=== PATIENT | female | born 1945 | race Hispanic/Latino ===

== ENCOUNTER → 2018-11-27 | Outpatient (CLI) | payer OTHER ==
[~2018-11-27] MED LIST: GADODIAMIDE 5 MMOL/10 ML VIAL 5 MMOL/10 ML ML IV ONE
== END | disposition home or self-care (01) ==
LOC: RAH 15:35
PROVIDERS: ATTEND Family Medicine
DX: R90.82 White matter disease, unspecified (principal)
CPT/HCPCS: 70553; A9579

== ENCOUNTER 2019-01-28 12:49 | Observation (INO) | payer OTHER ==
[~2019-01-28] VITALS: Ht 152.4 cm; Wt 67.9 kg
[2019-01-28 13:18] LABS: BASOPHILS % (AUTO) 0.9 % (0.0-5.0); EOSINOPHILS % (AUTO) 2.4 % (0.0-8.0); HEMATOCRIT 37.9 % (36-48); LYMPHOCYTES % (AUTO) 36.5 % (21.0-51.0); MEAN CORPUSCULAR HEMOGLOBIN 31.1 pg (27.0-33.0); MEAN CORPUSCULAR HGB CONC 34.5 g/dL (32.0-36.0); MEAN CORPUSCULAR VOLUME 90.3 fL (79-99); MONOCYTES % (AUTO) 5.9 % (3.0-13.0); NEUTROPHILS % (AUTO) 54.3 % (40.0-77.0); PLATELET COUNT (AUTO) 175 K/uL (130-400); RED CELL DISTRIBUTION WIDTH 13.5 % (11.0-15.5); WHITE BLOOD COUNT (AUTO) 6.3 K/uL (4.8-10.8)
[2019-01-28] MEDS ORDERED: METHYLPREDNISOLONE SOD SUCC 40MG/ML 1ML ONE (13:24)
[2019-01-28] MEDS ORDERED: METOCLOPRAMIDE 10 MG/2 ML VIAL ONE (13:24)
[2019-01-28] MEDS ORDERED: LACTATED RINGERS 1000ML 1,000 ML IV ONE (13:25)
[2019-01-28] MEDS ORDERED: DIPHENHYDRAMINE HCL 25 MG CAPSULE ONE (13:25)
[2019-01-28 13:32] LABS: CREATININE 0.7 mg/dL (0.5-1.5); POTASSIUM 3.9 mmol/L (3.5-5.1)
[2019-01-28 13:34] LABS: INR 0.99 (0.85-1.15); PARTIAL THROMBOPLASTIN TIME 27.5 SEC (26.3-35.5); PROTHROMBIN TIME 10.4 SEC (9.6-11.6)
[2019-01-28 13:36] LABS: ALBUMIN 3.7 g/dL (3.5-5.0); BILIRUBIN,TOTAL 0.3 mg/dL (0.2-1.0); TOTAL PROTEIN, SERUM 7.3 g/dL (6.0-8.3)
[2019-01-28] MEDS ORDERED: INSULIN HUMULIN R 100 UNIT/ML 3ML ONE (13:40)
[2019-01-28] MEDS: ENOXAPARIN SODIUM 30 MG/0.3 ML SQ SCH (15:53)
[2019-01-28] MEDS ORDERED: ACETAMINOPHEN 325 MG TAB PO PRN (16:00)
[2019-01-28] MEDS ORDERED: ONDANSETRON HCL 4 MG/2 ML VIAL IVP PRN (16:00)
[2019-01-28] MEDS ORDERED: ENOXAPARIN SODIUM 30 MG/0.3 ML SQ ONE (16:40)
[2019-01-28] MEDS ORDERED: ASPIRIN 81MG TAB.CHEW ONE (18:49)
[2019-01-28 19:20] VITALS: BP 144/75
[2019-01-28 23:20] VITALS: BP 119/74
[2019-01-29 03:30] VITALS: BP 127/76
[2019-01-29 04:02] LABS: HEMATOCRIT 35.8 % (36-48); MEAN CORPUSCULAR HGB CONC 35.3 g/dL (32.0-36.0); MEAN CORPUSCULAR VOLUME 90.5 fL (79-99); PLATELET COUNT (AUTO) 165 K/uL (130-400); RED BLOOD CELL COUNT(AUTO) 3.95 MIL/uL (4.00-5.50); RED CELL DISTRIBUTION WIDTH 13.2 % (11.0-15.5)
[2019-01-29 04:16] LABS: ALBUMIN 3.4 g/dL (3.5-5.0); BILIRUBIN,TOTAL 0.2 mg/dL (0.2-1.0); CREATININE 0.8 mg/dL (0.5-1.5); MAGNESIUM 1.6 mg/dL (1.80-2.40); POTASSIUM 4.2 mmol/L (3.5-5.1); TOTAL PROTEIN, SERUM 6.8 g/dL (6.0-8.3)
[2019-01-29 08:00] VITALS: BP 135/69
[2019-01-29] MEDS: ASPIRIN 81MG TAB.CHEW PO SCH (08:27)
[2019-01-29] MEDS: ENOXAPARIN SODIUM 30 MG/0.3 ML SQ SCH (08:28)
[2019-01-29] MEDS ORDERED: PNEUMOCOCCAL VACCINE POLYVALENT 0.5 ML/VIAL [PPV] IM SCH (09:00)
[2019-01-29 11:00] VITALS: BP_SYST 135; BP_SYST 146; BP_DIAS 69; BP_DIAS 89
[2019-01-29] MEDS ORDERED: MAGNESIUM 2GM PREMIX 50ML 50 ML IV SCH (12:00)
[2019-01-29] MEDS: INSULIN HUMULIN R 100 UNIT/ML 3ML SQ SCH ×3 (12:13→21:47)
[2019-01-29] MEDS ORDERED: SITA100T12 PO (13:13)
[2019-01-29] MEDS ORDERED: METF-444 PO (13:13)
[2019-01-29] MEDS ORDERED: SIMV20TA6 PO (13:13)
[2019-01-29] MEDS ORDERED: LISI10TA7 PO (13:13)
--- NOTE | 2019-01-29 15:10 | NUR ---
DCP CM met with pt discussed dc plans. Pt is independent lives at home alone, daughter lives next door. Denies any equipments/services. Pt feels safe to go back home, still drives, daughter able to assist with transportation and needs as necessary. DC plan to home once stable. CM to cont to follow up. Addendum: 01/29/19 at 1512 by LEELEE MENA LVN CM Amended: Links added.
[2019-01-29 16:00] VITALS: BP 125/70
[2019-01-29 19:43] VITALS: BP 140/72
[2019-01-29] MEDS ORDERED: SIMVASTATIN 20 MG TABLET PO SCH (21:00)
[2019-01-30] VITALS: BP 149/78
[2019-01-30 04:00] VITALS: BP 133/70
[2019-01-30] MEDS: INSULIN HUMULIN R 100 UNIT/ML 3ML SQ SCH (06:13)
[2019-01-30 07:25] VITALS: BP 149/82
[2019-01-30] MEDS: ASPIRIN 81MG TAB.CHEW PO SCH (07:58)
[2019-01-30] MEDS: ENOXAPARIN SODIUM 30 MG/0.3 ML SQ SCH (07:59)
[2019-01-30] MEDS ORDERED: LISINOPRIL 10 MG TABLET PO SCH (09:00)
--- NOTE | 2019-01-30 10:00 | NUR ---
MD REGGIE SALAMANCA VISITED WITH PATIENT. POC DISCUSSED. NO NEW ORDERS AT THIS TIME. PATIENT MAY BE DISCHARGED HOME TODAY IF OKAYT WITH . PATIENT AND FAMILY AWARE. WILL CONTINUE TO BE OBSERVED. Addendum: 01/30/19 at 1437 by ALINE MARION RN RN Amended: Links added.
[2019-01-30 11:00] VITALS: BP 124/74
--- NOTE | 2019-01-30 14:00 | NUR ---
MD REGGIE BERMEO VISITED WITH PATEINT. NEW ORDERS RECEIVED TO DISCHARGE HOME. PATIENT AWARE. ORDERS RECEIVED AND CARRIED OUT. Addendum: 01/30/19 at 1438 by ALINE MARION RN RN Amended: Links added.
--- NOTE | 2019-01-30 14:39 | NUR ---
DISCHARGE PATIENT GIVEN DISCHARGE INSTRUCTIONS AND EDUCATION, INCLUDING SIDE EFFECTS ON BABY ASPIRIN AND FOLLOW UP APPOINTMENTS. PATIENT VERBALIZED UNDERSTANDING OF ALL EDUCATION GIVEN VIA TEACH BACK. NO QUESTIONS OR CONCERNS VOICED AT THIS TIME. IV DISCONTINUED, CATHETER INTACT. NO SIGNS OF DISTRESS NOTED UPON DISCHARGE. PATIENT LEFT VIA WHEELCHAIR WITH DAUGHTER AT SIDE TO PRIVATE CAR. ALL BELONGINGS TAKEN WITH. Addendum: 01/30/19 at 1445 by ALINE MARION RN RN Amended: Links added.
== END 2019-01-30 15:01 | disposition home or self-care (01) ==
LOC: EDH 12:49 → EDHIP 15:16 → 4BH 19:15
PROVIDERS: ADMIT Internal Medicine Infectious Disease; ATTEND Internal Medicine Infectious Disease
DX: R42 Dizziness and giddiness (principal); M47.812 Spondylosis without myelopathy or radiculopathy, cervical region; E11.9 Type 2 diabetes mellitus without complications; E78.5 Hyperlipidemia, unspecified; H53.2 Diplopia; I10 Essential (primary) hypertension; Z83.3 Family history of diabetes mellitus; Z90.710 Acquired absence of both cervix and uterus; Z23 Encounter for immunization; Z79.01 Long term (current) use of anticoagulants
CPT/HCPCS: 36415 ×2; 70450; 70544; 70553; 72141; 80053 ×2; 82550; 82948 ×8; 83735; 84484; 85025; 85027; 85610; 85651; 85730; 86140; 87804 ×2; 90732; 93005; 96365; 96366; 96372 ×2; 99284; G0009; G0378 ×48; J1650 ×3; J1815 ×3; J2765; J2920; J3475; J7120; Q0163

== ENCOUNTER 2020-02-08 11:08 | Emergency (ER) | payer OTHER ==
[~2020-02-08 11:08] MED LIST changes: -GADODIAMIDE 5 MMOL/10 ML VIAL 5 MMOL/10 ML ML IV ONE; +LISI10TA7 PO; +METF-444 PO; +SIMV-43 PO; +SITA100T12 PO
[2020-02-08] MEDS ORDERED: ASPIRIN 325 MG TABLET ONE (11:20)
[2020-02-08 11:23] LABS: BASOPHILS % (AUTO) 0.7 % (0.0-5.0); EOSINOPHILS % (AUTO) 3.6 % (0.0-8.0); HEMATOCRIT 39.1 % (36-48); LYMPHOCYTES % (AUTO) 35.3 % (21.0-51.0); MEAN CORPUSCULAR HEMOGLOBIN 30.7 pg (27.0-33.0); MEAN CORPUSCULAR HGB CONC 34.8 g/dL (32.0-36.0); MEAN CORPUSCULAR VOLUME 88.3 fL (79-99); MONOCYTES % (AUTO) 5.9 % (3.0-13.0); NEUTROPHILS % (AUTO) 54.4 % (40.0-77.0); PLATELET COUNT (AUTO) 172 K/uL (130-400); RED BLOOD CELL COUNT(AUTO) 4.43 MIL/uL (4.00-5.50); RED CELL DISTRIBUTION WIDTH 12.6 % (11.0-15.5); WHITE BLOOD COUNT (AUTO) 6.9 K/uL (4.8-10.8)
[2020-02-08 11:32] LABS: CREATININE 0.8 mg/dL (0.5-1.5); INR 0.92 (0.85-1.15); PARTIAL THROMBOPLASTIN TIME 26.4 SEC (26.3-35.5); POTASSIUM 4.1 mmol/L (3.5-5.1)
[2020-02-08 11:36] LABS: ALBUMIN 3.7 g/dL (3.5-5.0); BILIRUBIN,TOTAL 0.3 mg/dL (0.2-1.0); TOTAL PROTEIN, SERUM 7.5 g/dL (6.0-8.3)
[2020-02-08] MEDS ORDERED: LIDOCAINE HCL 2% VISCOUS 15 ML UDCUP ONE (12:22)
[2020-02-08] MEDS ORDERED: MAG HYDROX/AL HYDROX/SIMETH ES 30 ML SUSP UDCUP ONE (12:23)
[2020-02-08] MEDS ORDERED: FAMOTIDINE/PF 20 MG/2 ML VIAL IV ONE (13:27)
== END 2020-02-08 13:39 | disposition home or self-care (01) ==
LOC: EDH 11:08
DX: K21.9 Gastro-esophageal reflux disease without esophagitis (principal); R07.89 Other chest pain; E11.9 Type 2 diabetes mellitus without complications; E78.5 Hyperlipidemia, unspecified; I10 Essential (primary) hypertension; Z87.891 Personal history of nicotine dependence; Z88.1 Allergy status to other antibiotic agents; Z91.041 Radiographic dye allergy status
CPT/HCPCS: 36415; 71045; 80053; 82550; 84484; 85025; 85610; 85730; 93005; 96374; 99285; J3490

== ENCOUNTER 2021-01-31 18:23 | Emergency (ER) | payer OTHER ==
[~2021-01-31 18:23] MED LIST changes: +LISI10TA24 PO; -LISI10TA7 PO
[2021-01-31 19:13] LABS: APPEARANCE,URINE Cloudy (CLEAR); BILIRUBIN,URINE Small (NEGATIVE); COLOR,URINE Dark Yellow (YELLOW); GLUCOSE, URINE (UA) >=1000 mg/dL (NEGATIVE); KETONES,URINE Trace mg/dL (NEGATIVE); LEUKOCYTE ESTERASE ,URINE Moderate (NEGATIVE); NITRATE,URINE Negative (NEGATIVE); OCCULT BLOOD,URINE Negative (NEGATIVE); PH,URINE 5.5 (5.0-8.0); PROTEIN,URINE Negative (NEGATIVE)
[2021-01-31] MEDS ORDERED: MAG HYDROX/AL HYDROX/SIMETH ES 30 ML SUSP UDCUP ONE (19:23)
[2021-01-31] MEDS ORDERED: LIDOCAINE HCL 2% VISCOUS 15 ML UDCUP ONE (19:23)
[2021-01-31 19:24] LABS: BACTERIA,URINE Few /HPF (None Seen)
[2021-01-31] MEDS ORDERED: ACETAMINOPHEN EXTRA STRENGTH 500 MG TABLET ONE (19:24)
[2021-01-31] MEDS ORDERED: FAMOTIDINE 20MG TAB 20 MG TAB ONE (19:24)
[2021-01-31] MEDS ORDERED: SODIUM CHLORIDE 0.9% 1000ML 1,000 ML IV ONE (19:24)
[2021-01-31 19:25] LABS: MUCUS,URINE Rare LPF (None Seen); SQUAMOUS EPITHELIAL CELL,UR Few /HPF (0-2)
[2021-01-31 19:33] LABS: BASOPHILS % (AUTO) 0.5 % (0.0-5.0); EOSINOPHILS % (AUTO) 1.2 % (0.0-8.0); HEMATOCRIT 38.4 % (36-48); LYMPHOCYTES % (AUTO) 23.3 % (21.0-51.0); MEAN CORPUSCULAR HEMOGLOBIN 30.2 pg (27.0-33.0); MEAN CORPUSCULAR HGB CONC 33.9 g/dL (32.0-36.0); MEAN CORPUSCULAR VOLUME 89.1 fL (79-99); MONOCYTES % (AUTO) 6.6 % (3.0-13.0); NEUTROPHILS % (AUTO) 68.2 % (40.0-77.0); PLATELET COUNT (AUTO) 159 K/uL (130-400); RED BLOOD CELL COUNT(AUTO) 4.31 MIL/uL (4.00-5.50); RED CELL DISTRIBUTION WIDTH 13.2 % (11.0-15.5); WHITE BLOOD COUNT (AUTO) 6.6 K/uL (4.8-10.8)
[2021-01-31] MEDS ORDERED: INSULIN HUMULIN R 100 UNIT/ML 3ML ONE (19:48)
== END 2021-01-31 21:15 | disposition home or self-care (01) ==
LOC: EDH 18:23
DX: K29.00 Acute gastritis without bleeding (principal); E11.65 Type 2 diabetes mellitus with hyperglycemia; R03.0 Elevated blood-pressure reading, without diagnosis of hypertension; E78.5 Hyperlipidemia, unspecified; Z91.041 Radiographic dye allergy status; Z88.1 Allergy status to other antibiotic agents
CPT/HCPCS: 36415; 71045; 81001; 82948 ×2; 83605; 83690; 84484; 85025; 87040; 87088; 93005; 96361; 96374; 99285; J1815; J7030

== ENCOUNTER 2022-06-29 11:25 | Emergency (ER) | payer MEDICAID, MEDICARE, OTHER ==
[~2022-06-29] VITALS: Ht 147.3 cm; Wt 68.0 kg
[2022-06-29] MEDS ORDERED: 0.9%NACL 1000ML 1,000 ML IV ONE (12:00)
[2022-06-29 12:23] LABS: BASOPHILS % (AUTO) 0.6 % (0.0-5.0); EOSINOPHILS % (AUTO) 2.6 % (0.0-8.0); HEMATOCRIT 37.8 % (36-48); LYMPHOCYTES % (AUTO) 37.3 % (21.0-51.0); MEAN CORPUSCULAR HEMOGLOBIN 31.2 pg (27.0-33.0); MEAN CORPUSCULAR HGB CONC 35.4 g/dL (32.0-36.0); MEAN CORPUSCULAR VOLUME 87.9 fL (79-99); MONOCYTES % (AUTO) 6.3 % (3.0-13.0); NEUTROPHILS % (AUTO) 52.9 % (40.0-77.0); PLATELET COUNT (AUTO) 183 K/uL (130-400); WHITE BLOOD COUNT (AUTO) 6.5 K/uL (4.8-10.8)
[2022-06-29 12:26] LABS: APPEARANCE,URINE CLEAR (CLEAR); BILIRUBIN,URINE NEGATIVE (NEGATIVE); COLOR,URINE LIGHT-YELLOW (YELLOW); GLUCOSE, URINE (UA) NEGATIVE (NEGATIVE); KETONES,URINE NEGATIVE (NEGATIVE); LEUKOCYTE ESTERASE ,URINE 25 Leu/uL (NEGATIVE); NITRATE,URINE NEGATIVE (NEGATIVE); OCCULT BLOOD,URINE NEGATIVE (NEGATIVE); PROTEIN,URINE NEGATIVE (NEGATIVE); UROBILINOGEN,URINE 0.2 mg/dL (0.2-1.0)
[2022-06-29 12:27] LABS: SQUAMOUS EPITHELIAL CELL,UR RARE /HPF (0-2)
[2022-06-29 12:34] LABS: ALBUMIN 3.9 g/dL (3.5-5.0); CREATININE 0.8 mg/dL (0.5-1.5); POTASSIUM 4.5 mmol/L (3.5-5.1); TOTAL PROTEIN, SERUM 7.4 g/dL (6.0-8.3)
[2022-06-29] MEDS ORDERED: ACETAMINOPHEN 325 MG TAB ONE (12:51)
[2022-06-29 12:57] VITALS: BP 132/70
[2022-06-29] MEDS ORDERED: ACETAMINOPHEN 325 MG TAB PO ONE (13:00)
[2022-06-29] MEDS ORDERED: CEPH500B PO (13:15)
[2022-06-29] MEDS ORDERED: ACET-66 PO (13:15)
== END 2022-06-29 13:27 | disposition home or self-care (01) ==
LOC: EDH 11:25
DX: N39.0 Urinary tract infection, site not specified (principal); R51.9 Headache, unspecified; R42 Dizziness and giddiness; E11.9 Type 2 diabetes mellitus without complications; E78.00 Pure hypercholesterolemia, unspecified; I10 Essential (primary) hypertension; Z98.890 Other specified postprocedural states; Z88.1 Allergy status to other antibiotic agents; Z88.8 Allergy status to other drugs, medicaments and biological substances; Z79.899 Other long term (current) drug therapy; Z79.84 Long term (current) use of oral hypoglycemic drugs; W01.0XXA Fall on same level from slipping, tripping and stumbling without subsequent striking against object, initial encounter; Y93.89 Activity, other specified; Y92.89 Other specified places as the place of occurrence of the external cause; Y99.8 Other external cause status
CPT/HCPCS: 99285; 70450; 82550; 83874; 84484; 80053; 85025; 81001; 36415; 72125; 93005; J7030

== ENCOUNTER 2023-02-19 12:02 | Inpatient (IN) | payer MEDICARE, OTHER ==
[~2023-02-19] VITALS: Ht 152.4 cm; Wt 69.3 kg
[~2023-02-19 12:02] MED LIST changes: +ACET-66 PO; +CEPH500B PO
[2023-02-19 12:47] LABS: BASOPHILS % (AUTO) 0.5 % (0.0-5.0); EOSINOPHILS % (AUTO) 2.3 % (0.0-8.0); HEMATOCRIT 37.4 % (36-48); LYMPHOCYTES % (AUTO) 28.7 % (21.0-51.0); MEAN CORPUSCULAR HEMOGLOBIN 29.6 pg (27.0-33.0); MEAN CORPUSCULAR HGB CONC 32.9 g/dL (32.0-36.0); MEAN CORPUSCULAR VOLUME 89.9 fL (79-99); MONOCYTES % (AUTO) 6.4 % (3.0-13.0); NEUTROPHILS % (AUTO) 61.9 % (40.0-77.0); PLATELET COUNT (AUTO) 167 K/uL (130-400); RED BLOOD CELL COUNT(AUTO) 4.16 MIL/uL (4.00-5.50); WHITE BLOOD COUNT (AUTO) 6.5 K/uL (4.8-10.8)
[2023-02-19 12:49] LABS: APPEARANCE,URINE CLEAR (CLEAR); BILIRUBIN,URINE NEGATIVE (NEGATIVE); GLUCOSE, URINE (UA) 500 mg/dL (NEGATIVE); KETONES,URINE NEGATIVE (NEGATIVE); LEUKOCYTE ESTERASE ,URINE NEGATIVE Leu/uL (NEGATIVE); NITRATE,URINE NEGATIVE (NEGATIVE); OCCULT BLOOD,URINE NEGATIVE (NEGATIVE); PROTEIN,URINE NEGATIVE (NEGATIVE); UROBILINOGEN,URINE 0.2 mg/dL (0.2-1.0)
[2023-02-19 12:52] LABS: COLOR,URINE LIGHT-YELLOW (YELLOW)
[2023-02-19] MEDS ORDERED: IOHEXOL 350 MG/ML 100ML INFUS..BTL IV ONE (12:52)
[2023-02-19 12:53] LABS: BACTERIA,URINE RARE /HPF (None Seen); RBC,URINE 0-1 /HPF (0-1); SQUAMOUS EPITHELIAL CELL,UR RARE /HPF (0-2); WBC,URINE 0-1 /HPF (0-1)
[2023-02-19 12:58] LABS: CREATININE 0.6 mg/dL (0.5-1.5); POTASSIUM 4.1 mmol/L (3.5-5.1)
[2023-02-19] MEDS ORDERED: ASPIRIN 325MG TAB PO ONE (13:00)
[2023-02-19 13:02] LABS: ALBUMIN 2.5 g/dL (3.5-5.0); TOTAL PROTEIN, SERUM 7.2 g/dL (6.0-8.3)
[2023-02-19 13:10] LABS: B-TYPE NATRIURETIC PEPTIDE 50 pg/mL (0-100)
[2023-02-19] MEDS ORDERED: INSULIN HUMULIN R 100 UNIT/ML 3ML IV ONE (14:30)
[2023-02-19] MEDS ORDERED: 0.9%NACL 1000ML 1,000 ML IV ONE (14:30)
[2023-02-19] MEDS ORDERED: HYDRALAZINE 20MG/ML VIAL IV PRN (17:00)
[2023-02-19 17:44] LABS: THYROID STIMULATING HORMONE 1.16 uIU/mL (0.36-3.74)
[2023-02-19 17:49] LABS: HEMOGLOBIN A1C 10.7 % (4.0-6.0)
[2023-02-19 17:54] LABS: CRP QUANTITATIVE < 2.00 mg/L (0.00-9.0)
[2023-02-19 18:26] LABS: INR 0.98 (0.85-1.15); PROTHROMBIN TIME 10.7 SEC (9.6-11.6)
[2023-02-19 18:28] LABS: PARTIAL THROMBOPLASTIN TIME 27.3 SEC (26.3-35.5)
[2023-02-19] MEDS: INSULIN HUMULIN R 100 UNIT/ML 3ML SQ SCH (21:00)
[2023-02-19] MEDS: ATORVASTATIN 40 MG TABLET PO SCH (22:21)
[2023-02-19 22:30] VITALS: BP 158/80
[2023-02-19] MEDS ORDERED: SACU1TAB PO (23:48)
[2023-02-19] MEDS ORDERED: SEMA14TA2 PO (23:48)
[2023-02-19] MEDS ORDERED: ROSU40TA21 PO (23:48)
[2023-02-20] VITALS (8 sets, daily range): BP systolic 118–156; BP diastolic 69–96
[2023-02-20 00:35] LABS: ABG OXYGEN SATURATION 91.5 % (95.0-99.0); BASE EXCESS,VENOUS BLOOD GAS 4.1 (-2.0-3.0); HCO3,VENOUS BLOOD GAS 29.1 (21.0-28.0); PCO2,VENOUS BLOOD GAS 45 (32-45); PH,VENOUS BLOOD GAS 7.427 (7.350-7.450)
[2023-02-20 05:48] LABS: BASOPHILS % (AUTO) 0.7 % (0.0-5.0); EOSINOPHILS % (AUTO) 2.8 % (0.0-8.0); HEMATOCRIT 35.7 % (36-48); LYMPHOCYTES % (AUTO) 29.7 % (21.0-51.0); MEAN CORPUSCULAR HGB CONC 33.3 g/dL (32.0-36.0); MEAN CORPUSCULAR VOLUME 89.9 fL (79-99); MONOCYTES % (AUTO) 7.3 % (3.0-13.0); NEUTROPHILS % (AUTO) 59.2 % (40.0-77.0); PLATELET COUNT (AUTO) 159 K/uL (130-400); RED BLOOD CELL COUNT(AUTO) 3.97 MIL/uL (4.00-5.50); WHITE BLOOD COUNT (AUTO) 6.9 K/uL (4.8-10.8)
[2023-02-20 06:09] LABS: CREATININE 0.6 mg/dL (0.5-1.5); MAGNESIUM 1.8 mg/dL (1.80-2.40); POTASSIUM 3.7 mmol/L (3.5-5.1)
[2023-02-20] MEDS: INSULIN HUMULIN R 100 UNIT/ML 3ML SQ SCH ×4 (06:20→20:42)
[2023-02-20] MEDS ORDERED: ACETAMINOPHEN 500 MG TABLET PO PRN (07:30)
[2023-02-20] MEDS: Vitamin B Complex/Vit C/Folic Acid PO SCH (07:32)
[2023-02-20] MEDS: PANTOPRAZOLE 40 MG TAB DR PO SCH (07:32)
[2023-02-20] MEDS: ASPIRIN 81MG CHEW TAB PO SCH (07:33)
[2023-02-20] MEDS: ATORVASTATIN 40 MG TABLET PO SCH (20:39)
[2023-02-21 00:28] VITALS: BP 149/81
[2023-02-21 03:42] VITALS: BP 136/68
[2023-02-21] MEDS: INSULIN HUMULIN R 100 UNIT/ML 3ML SQ SCH (06:47)
[2023-02-21 07:43] VITALS: BP 124/67
[2023-02-21] MEDS: PANTOPRAZOLE 40 MG TAB DR PO SCH (08:01)
[2023-02-21] MEDS: ASPIRIN 81MG CHEW TAB PO SCH (08:02)
[2023-02-21] MEDS: Vitamin B Complex/Vit C/Folic Acid PO SCH (08:02)
[2023-02-21] MEDS ORDERED: CLOPIDOGREL 75MG TAB PO SCH (09:00)
[2023-02-21] MEDS ORDERED: ATOR40TA69 PO (10:19)
[2023-02-21] MEDS ORDERED: PANT40TA PO (10:19)
[2023-02-21] MEDS ORDERED: ASPI-1005 PO (10:19)
[2023-02-21] MEDS ORDERED: CLOP-31 PO (10:19)
== END 2023-02-21 11:47 | disposition home or self-care (01) | DRG 69 ==
LOC: EDH 12:02 → EDHIP 16:43 → 4AH 18:54 → 2DH 22:08
PROVIDERS: ADMIT Internal Medicine; ATTEND Internal Medicine
DX: G45.9 Transient cerebral ischemic attack, unspecified (principal); M50.30 Other cervical disc degeneration, unspecified cervical region; E11.65 Type 2 diabetes mellitus with hyperglycemia; E78.00 Pure hypercholesterolemia, unspecified; R29.700 NIHSS score 0; I10 Essential (primary) hypertension; Z20.822 Contact with and (suspected) exposure to COVID-19; Z95.5 Presence of coronary angioplasty implant and graft; Z90.49 Acquired absence of other specified parts of digestive tract; Z90.711 Acquired absence of uterus with remaining cervical stump
CPT/HCPCS: 36415; 36430; 36600; 70450; 70496; 70498; 70551; 71045; 80048; 80053; 81001; 82435; 82550; 82803; 82947; 82948; 83036; 83605; 83721; 83735; 83874; 83880; 84132; 84145; 84295; 84443; 84484; 85025; 85610; 85651; 85730; 86140; 87635; 87804; 92522; 92610; 93005; 93306; 93356; 93880; 97039; G0378; J1815; J7030; Q9967

== ENCOUNTER 2025-06-30 09:51 | Emergency (ER) | payer OTHER ==
[~2025-06-30] VITALS: Ht 157.5 cm; Wt 59.0 kg
[~2025-06-30 09:51] MED LIST changes: -ACET-66 PO; +ASPI-1005 PO; +ATOR40TA69 PO; +BUDE10.2 IH; +CALC-1125 PO; -CEPH500B PO; +CLOP-31 PO; +ERGO500093 PO; +FENO54TA6 PO; +ICOS1CAP2 PO; -LISI10TA24 PO; -SIMV-43 PO; -SITA100T12 PO
--- NOTE | 2025-06-30 10:29 | ERN ---
ED Note History of Present Illness Stated Complaint: NECK, DIZZY Chief Complaint: Dizzy/Light Headed Time Seen by MD: 10:12 Dictation: PATIENT IS A 80-YEAR-OLD FEMALE THAT CAME TO THE EMERGENCY ROOM VIA EMS WITH COMPLAINTS OF BEING LIGHTHEADED AND DIZZY FOR THE LAST WEEK WITH GENERALIZED BODY WEAKNESS. SHE ALSO COMPLAINTS OF A DIFFUSE BILATERAL AND POSTERIOR NECK PAIN FOR ONE WEEK. SHE HAS NO TRAUMA NO FEVER NO CHILLS. SHE STATES SHE LIVES ALONE AND HAS BEEN WEAK FOR THE LAST SEVERAL DAYS. HAS NO SPECIFIC COMPLAINTS NIH IS FOUR SPEECH IS CLEAR GAIT IS STEADY. Allergies: Coded Allergies: ciprofloxacin (Unverified Allergy, Unknown, 01/28/19) iodine (Verified Allergy, Unknown, 01/28/19) Home Meds Active Scripts Amoxicillin/Potassium Clav (Amox Tr-K Clv 875-125 mg Tab) 875 Mg-125 Mg Tablet, 1 EACH PO BID for 5 Days, #10 TAB 0 Refills Prov:REN OROZCO [facility] SPECIALIST 06/30/25 Clopidogrel Bisulfate (Plavix) 75 Mg Tablet, 75 MG PO DAILY, #30 TAB 0 Refills Prov:GERALDINE BLANCA MD 02/21/23 Atorvastatin Calcium (LIPITOR) 40 Mg Tablet, 40 MG PO HS, #30 TAB 0 Refills Prov:GERALDINE BLANCA MD 02/21/23 Aspirin (ASPIRIN 81MG CHEW TAB) 81 Mg Tab.chew, 81 MG PO DAILY, #30 TAB.CHEW 0 Refills Prov:GERALDINE BLANCA MD 02/21/23 Reported Medications Ergocalciferol (Vitamin D2) (Vitamin D2) 1,250 Mcg (26238 Unit) Capsule, 1250 MCG PO DAILY, CAP 11/07/23 Fenofibrate (Fenofibrate) 54 Mg Tablet, 54 MG PO DAILY, TAB 11/07/23 Calcium Carbonate (Calcium) 600 Mg Calcium (1500 Mg) Tablet, 600 MG PO BID, TAB 11/07/23 Icosapent Ethyl (Icosapent Ethyl) 1 Gram Capsule, 2 GM PO BID, CAP 11/07/23 Budesonide/Formoterol Fumarate (Symbicort 160-4.5 Mcg Inhaler) 160 Mcg-4.5 Mcg/Actuation Hfa.aer.ad, 10.2 GM IH BID 11/07/23 Metformin HCl (Metformin HCl) 500 Mg Tablet, 500 MG PO BIDAC, TAB 01/29/19 Past Medical History Past Medical History: COPD, Diabetes-Type II, Hypertension Surgical History: None Surgical History Other: CARDIAC STENTS, ABD SX Social History: Negative History: Not Applicable RN Note Reviewed/Agreed w/PFSH: Yes Review of System Dictation CONSTITUTIONAL: NEGATIVE EXCEPT FOR HPI GB W/LIGHTHEADED HEAD/FACE: NEGATIVE EXCEPT FOR HPI EENT: NEGATIVE EXCEPT FOR HPI RESPIRATORY: NEGATIVE EXCEPT FOR HPI GASTROINTESTINAL/ABDOMINAL: NEGATIVE EXCEPT FOR HPI GENITOURINARY: NEGATIVE EXCEPT FOR HPI MUSCULOSKELETAL: NEGATIVE EXCEPT FOR HPI INTEGUMENTARY: NEGATIVE EXCEPT FOR HPI NEUROLOGICAL/PSYCH: NEGATIVE EXCEPT FOR HPI HEMATOLOGIC/LYMPHATIC: NEGATIVE EXCEPT FOR HPI ALL SYSTEMS NEGATIVE, EXCEPT NOTED ABOVE. 13 POINT REVIEW OF SYSTEMS ASSESSED AND ALL NEGATIVE EXCEPT FOR ABOVE. Initial Vital Sign VS Vital Signs Date Time Temp Pulse Resp B/P (MAP) Pulse Ox O2 Delivery O2 Flow Rate FiO2 06/30/25 09:55 100.0 94 16 157/81 98 Room Air 0 06/30/25 12:20 21 Physical Exam Dictation VITAL SIGNS REVIEWED GENERAL APPEARANCE: ALERT, ORIENTED X 3, MILD ACUTE DISTRESS, WELL DEVELOPED, NOURISHED. HEAD AND FACE: NON-TRAUMATIC. EYES: PERRL, PINK CONJUNCTIVAS, EYELID NO TRAUMA, ANTERIOR CHAMBER WITH ARCUS SENILIS. EARS: PINNAS INTACT AND NO SIGNS OF TRAUMA OR ERYTHEMA EAR CANALS CLEAR AND NO DISCHARGE TM NO ERYTHEMA NOSE: NO DISCHARGE, NO BLEEDING. OROPHARYNX: MOUTH NORMAL, TONGUE PINK, PHARYNX CLEAR,NO ERYTHEMA, TONSILS NO EXUDATES, NO ABSCESSES NOTED, MUCOUS MEMBRANE MOIST NECK: SUPPLE, NON-TENDER, NO THYROMEGALY, NO MASSES, NO JVD, NO BRUITS BREAST:DEFERRED CHEST:NO TENDERNESS, NO CREPITUS, NO PARADOXICAL MOVEMENT, NO RETRACTIONS LUNGS:CLEAR, WELL-VENTILATED, SYMMETRIC, NO RALES, NO WHEEZING, NO RHONCHI, NO STRIDOR, GOOD BREATH SOUNDS BILATERALLY HEART: REGULAR RATE, REGULAR RHYTHM, NO MURMUR, NO GALLOPS VASCULAR: NO PERIPHERAL EDEMA, ABDOMEN: SOFT, POSITIVE BOWEL SOUNDS, NONDISTENDED, NO GUARDING, NONTENDER, NO REBOUND, NO MASSES NO HEPATOMEGALY, NO SPLENOMEGALY, NO SHAY'S SIGN, NO HERNIAS. RECTAL: DEFERRED GENITAL: DEFERRED NEUROLOGICAL: NORMAL SPEECH, MOTOR FUNCTION INTACT, SENSORY FUNCTION INTACT MUSCULOSKELETAL: NECK NONTENDER, FULL RANGE OF MOTION, BACK NONTENDER, FULL RANGE OF MOTION, EXTREMITIES: NONTENDER, FULL RANGE OF MOTION SKIN: COLOR PINK, DRY, NO TURGOR, NO RASH, NO LACERATIONS, NO ABRASIONS, NO CONTUSIONS. LYMPHATIC: DEFERRED Results (Laboratory/Radiology) Laboratory/Radiology Laboratory Tests Test 06/30/25 10:30 06/30/25 10:39 Urine Color LIGHT-YELLOW (YELLOW) Urine Appearance CLEAR (CLEAR) Urine pH 5.5 (5.0-8.0) Urine Specific [place] 1.026 (1.001-1.031) Urine Protein NEGATIVE mg/dL (NEGATIVE) Urine Glucose (UA) >=1000 mg/dL (NEGATIVE) H Urine Ketones 5 mg/dL (NEGATIVE) H Urine Occult Blood NEGATIVE (NEGATIVE) Urine Nitrate NEGATIVE (NEGATIVE) Urine Bilirubin NEGATIVE mg/dL (NEGATIVE) Urine Urobilinogen 0.2 mg/dL (0.2-1.0) Urine Leukocyte Esterase 25 Renetta/uL (NEGATIVE) H Urine RBC 6-10 /HPF (0-1) H Urine WBC 11-25 /HPF (0-1) H Urine Squamous Epithelial Cells FEW /HPF (0-2) Urine Bacteria None /HPF (None Seen) White Blood Count 9.3 K/uL (4.8-10.8) Red Blood Count 4.39 MIL/uL (4.00-5.50) Hemoglobin 13.3 g/dL (12.0-16.0) Hematocrit 39.7 % (36-48) Mean Corpuscular Volume 90.4 fL (79-99) Mean Corpuscular Hemoglobin 30.3 pg (27.0-33.0) Mean Corpuscular Hemoglobin Concent 33.5 g/dL (32.0-36.0) Red Cell Distribution Width 12.6 % (11.0-15.5) Platelet Count 167 K/uL (130-400) Mean Platelet Volume 10.4 fL (7.5-10.5) Immature Granulocyte % (Auto) 0.3 % (0-1) Neutrophils (%) (Auto) 87.1 % (40.0-77.0) H Lymphocytes (%) (Auto) 8.1 % (21.0-51.0) L Monocytes (%) (Auto) 4.1 % (3.0-13.0) Eosinophils (%) (Auto) 0.1 % (0.0-8.0) Basophils (%) (Auto) 0.3 % (0.0-5.0) Neutrophils # (Auto) 8.1 K/uL (1.8-7.7) H Lymphocytes # (Auto) 0.8 K/uL (1.0-4.8) L Monocytes # (Auto) 0.4 K/uL (0.1-1.0) Eosinophils # (Auto) 0.01 K/uL (0.00-0.70) Basophils # (Auto) 0.03 K/uL (0.00-0.20) Absolute Immature Granulocyte (auto 0.03 K/uL (0-1) Nucleated Red Blood Cells 0.0 % (0.0-0.19) White Cell Morphology Comment See comments Sodium Level 135 mmol/L (136-145) L Potassium Level 4.2 mmol/L (3.5-5.1) Chloride Level 98 mmol/L (101-111) L Carbon Dioxide Level 29 mmol/L (21-32) Blood Urea Nitrogen 21 mg/dL (7-18) H Creatinine 0.7 mg/dL (0.5-1.0) Glomerular Filtration Rate Calc 86 mL/min (>90) Random Glucose 140 mg/dL (70-105) H Total Calcium 9.3 mg/dL (8.5-10.1) Magnesium Level 1.80 mg/dL (1.80-2.40) Troponin I High Sensitivity 4 ng/L (4-50) B-Type Natriuretic Peptide 47 pg/mL (0-100) 1202/CHEST X-RAY NEGATIVE 1202/CERVICAL X-RAY DEGENERATIVE CHANGES ON Labs Reviewed?: Yes EKG Comment: EKG IS NORMAL SINUS RHYTHM/HEART RATE 98/AXIS NORMAL/NO ECTOPY ED Course ED Course Orders Procedure Category Date Status Time B-Type Natriuretic LAB 06/30/25 Complete Peptide 10:27 Cbc With Differential LAB 06/30/25 Complete 10:27 Chest 1vw RAD 06/30/25 Resulted 10:27 12 Lead Ekg Tracing- EKG 06/30/25 Resulted Technical 10:27 Magnesium LAB 06/30/25 Complete 10:27 Troponin I High LAB 06/30/25 Complete Sensitivity 10:27 Urinalysis Profile LAB 06/30/25 Complete 10:27 Basic Metabolic Panel LAB 06/30/25 Complete 10:27 Cerv Spine 2-3vws RAD 06/30/25 Resulted 10:27 0.9%Nacl 1000ml (Ns PHA 06/30/25 Complete 1000ml) 11:30 Culture Urine NOREEN 06/30/25 In Process 11:38 Dexamethasone 4mg/Ml PHA 06/30/25 Complete 1ml Vial (Dexametha 12:30 Amox/Clav 875/125mg PHA 06/30/25 Complete Tab (Augmentin 875-1 13:30 Current Medications Medications (Trade) Dose Ordered Sig/Kennedy Route PRN Reason Start Time Stop Time Status Last Admin Dose Admin Amoxicillin/ Clavulanate Potassium (Augmentin 875-125 Tablet) 1 each ONCE ONCE PO 06/30/25 13:30 06/30/25 13:31 DC 06/30/25 13:25 Dexamethasone Sodium Phosphate (dexaMETHasone 4MG/ML 1ML VIAL) 8 mg ONCE ONCE IVP 06/30/25 12:30 06/30/25 12:31 DC 06/30/25 12:15 Sodium Chloride 1,000 ml @ 0 mls/hr ONCE ONCE IV 06/30/25 11:30 06/30/25 11:31 DC 06/30/25 12:15 Vital Signs Date Time Temp Pulse Resp B/P (MAP) Pulse Ox O2 Delivery O2 Flow Rate FiO2 06/30/25 13:24 99.0 85 16 156/76 98 Room Air* 0 06/30/25 12:20 99.0 90 16 154/80 98 Room Air* 0 06/30/25 09:55 100.0 94 16 157/81 98 Room Air 0 1317/PATIENT STATES SHE FEELS MARKEDLY IMPROVED AFTER FLUIDS AND AUGMENTIN. SHE IS AWARE THAT HER CARDIAC WORKUP WAS NEGATIVE AND TO FOLLOW UP WITH YOUR DOCTOR NEXT 1-2 DAYS HEART Score Response (Comments) Value History: Low suspicion (0) 0 EKG: Normal 0 Age: > 65yrs (+2) 2 Risk Factors: 1-2 risk factors (+1) 1 Initial Troponin: Normal limit (0) 0 Total 3 Medical Decision Making MDM MDM: DIFFERENTIAL DIAGNOSIS: ACS/AMI/ELECTROLYTE IMBALANCE/DEHYDRATION/HYPOMAGNESEMIA/UTI/PNEUMONIA/BRONCHITIS/ARRHYTHMIA RATIONALE: TESTS CONSIDERED AND ORDERED SECONDARY TO SHARED DECISION MAKING INCLUDE: EKG/LABS/RADIOLOGY PREVIOUS OUTSIDE RECORDS REVIEWED: OLD ER VISITS. RISK OF COMPLICATION AND/OR MORBIDITY OR MORTALITY OF PATIENT MANAGEMENT: NONE MEDICATIONS-PER MEDICATION RECONCILIATION NEED FOR HOSPITALIZATION: PATIENT DOES NOT MEET CRITERIA FOR HOSPITALIZATION. NO NEED FOR EMERGENCY MAJOR/MINOR SURGERY: NO THERE ARE NO SOCIAL CONCERNS WITH THIS PATIENT. PRESCRIPTION DRUG MANAGEMENT AUGMENTIN PRESCRIPTIONS WILL INCLUDE SYMPTOMATIC CARE PATIENT'S PRIOR EXTERNAL MEDICAL RECORDS FROM OTHER ER VISITS WERE REVIEWED BY ME INDICATED. PRIOR TESTING AND RESULTS FROM PREVIOUS VISITS WERE REVIEWED. PRIOR TESTS WERE TAKEN INTO ACCOUNT WITH MEDICAL DECISION MAKING AND RESOURCE UTILIZATION, INDEPENDENT HISTORIAN/HISTORIANS WERE USED TO OBTAIN COMPLETE MEDICAL HISTORY. I INDEPENDENTLY INTERPRETED THE TEST THAT WERE PERFORMED, RESULTS WERE REVIEWED BY ME AND CONSIDERED FINDINGS ON RADIOLOGY IF ORDERED. MEDICAL MANAGEMENT AND EXAMINATION INTERPRETATION DISCUSSIONS WERE HAD BY ME WITH OTHER QUALIFIED HEALTHCARE PROFESSIONALS INDICATED FOR THE PATIENT'S CARE. DX & DISP Disposition: Discharge Departure Impression: Primary Impression: UTI (urinary tract infection) Additional Impressions: Mild dehydration, Hyponatremia Condition: Stable Scripts Amoxicillin/Potassium Clav (Amox Tr-K Clv 875-125 mg Tab) 875 Mg-125 Mg Tablet 1 EACH PO BID for 5 Days, #10 TAB 0 Refills Prov: REN OROZCO NP 06/30/25 Additional Instructions: FOLLOW-UP WITH PRIMARY CARE PROVIDER IN 1 TO 2 DAYS. TAKE MEDICATIONS DIRECTED HERE IN THE EMERGENCY ROOM. OKAY TO CONTINUE HOME MEDICATIONS UNLESS OTHERWISE DISCUSSED DURING YOUR VISIT IN THE EMERGENCY ROOM TODAY. RETURN TO YOUR NEAREST EMERGENCY ROOM IF SYMPTOMS WORSEN OR IF THERE IS NO IMPROVEMENT. CALL 911 IF YOU NEED IMMEDIATE ASSISTANCE. TAKE TYLENOL OR MOTRIN [id number] NEEDED AND IF NO CONTRAINDICATIONS ARE PRESENT. INCREASE O RAL HYDRATION. A WOUND CULTURE OR URINE CULTURE WAS ORDERED HERE IN THE EMERGENCY ROOM DEPARTMENT PLEASE FOLLOW-UP WITH PRIMARY CARE PROVIDER AND ADVISE THEM TO GET REPEAT PORTS FROM OUR FACILITY. IF YOU HAD ANY MAJO WRAP/SPLINTS THAT WERE APPLIED HERE, PLEASE DO NOT REMOVE THEM UNTIL YOU SEE YOUR PRIMARY CARE OR SPECIALTY. TAKE ANTIBIOTICS DIRECTED UNTIL GONE HIM. INCREASE YOUR WATER INTAKE., SEE YOUR PRIMARY CARE DOCTOR FOR FOLLOW UP AND MANAGEMENT IN THE NEXT 1-2 DAYS. Referrals: NAPOLEON HOLLIS (PCP) Time of Disposition: 13:21 I have reviewed the case, and I agree with, Diagnosis and Plan REN OROZCO NP Jun 30, 2025 10:29 MARGARETTE ACEVEDO DO Jun 30, 2025 14:57
--- NOTE | 2025-06-30 10:42 | EKG ---
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
[2025-06-30 10:44] LABS: IMMATURE GRANULOCYTE ABSOLUTE 0.03 K/uL (0-1); NUCLEATED RED BLOOD CELLS 0.0 % (0.0-0.19); PLATELET COUNT (AUTO) 167 K/uL (130-400); RED BLOOD CELL COUNT(AUTO) 4.39 MIL/uL (4.00-5.50); RED CELL DISTRIBUTION WIDTH 12.6 % (11.0-15.5); WHITE BLOOD COUNT (AUTO) 9.3 K/uL (4.8-10.8)
[2025-06-30 10:49] LABS: APPEARANCE,URINE CLEAR (CLEAR); GLUCOSE, URINE (UA) >=1000 mg/dL (NEGATIVE); LEUKOCYTE ESTERASE ,URINE 25 Leu/uL (NEGATIVE); NITRATE,URINE NEGATIVE (NEGATIVE); OCCULT BLOOD,URINE NEGATIVE (NEGATIVE)
[2025-06-30 10:54] LABS: ADD UA MICROSCOPIC YES
[2025-06-30 11:04] LABS: CREATININE 0.7 mg/dL (0.5-1.0); GLOMERULAR FILTR. RATE CALC 86.0 mL/min (>90); GLUCOSE,RANDOM 140.0 mg/dL (70-105); SODIUM SERUM 135.0 mmol/L (136-145); UREA NITROGEN, BLOOD 21.0 mg/dL (7-18)
[2025-06-30 11:36] LABS: SQUAMOUS EPITHELIAL CELL,UR FEW /HPF (0-2)
--- NOTE | 2025-06-30 12:07 | HMCIMG ---
EXAM: CR Chest, 1 View. CLINICAL HISTORY: SHORTNESS A BREATH COMPARISON: None provided. FINDINGS: LUNGS: The lungs show no infiltrate or other acute finding. Mild bibasilar atelectasis. PLEURAL SPACES: No pleural effusion or pneumothorax. MEDIASTINUM: The cardiomediastinal silhouette is within normal limits. BONES: No acute osseous abnormality. IMPRESSION: No acute cardiopulmonary pathology is evident. /[place]
--- NOTE | 2025-06-30 12:09 | HMCIMG ---
EXAM: CR Cervical spine, 6 View. CLINICAL HISTORY: DIFFUSE POSTERIOR NECK PAIN NON TRAUMA ONE WEEK COMPARISON: None provided. FINDINGS: BONES: No acute fracture or aggressive appearing osseous lesion. DISCS/DEGENERATIVE CHANGES: Cervical spondylosis evident by small to moderate anterior osteophytes, syndesmophytes, and multilevel facet joint osteoarthritis. There is mild to moderate disc disease at C6-C7. There is mild disc disease at C5-C6. Vertebral body heights are maintained without a displaced fracture. There is no listhesis. SOFT TISSUES: No prevertebral soft tissue swelling. The visualized lung apices are clear. IMPRESSION: 1. No acute cervical spine osseous injury. 2. Cervical spondylosis as described above. /[place]
[2025-06-30] MEDS: 0.9%NACL 1000ML 1,000 ML IV ONE (12:15)
[2025-06-30] MEDS ORDERED: AMOX1TAB16 PO (13:21)
[2025-06-30 13:24] VITALS: BP 156/76; PULSE 85; RESP 16; TEMP 98.9; O2SAT 98
[2025-06-30] MEDS: AMOX/CLAV 875/125MG TAB PO ONE (13:25)
== END 2025-06-30 13:39 | disposition home or self-care (01) ==
LOC: EDH 09:51
DX: N39.0 Urinary tract infection, site not specified (principal); E86.0 Dehydration; E87.1 Hypo-osmolality and hyponatremia; E11.9 Type 2 diabetes mellitus without complications; J44.9 Chronic obstructive pulmonary disease, unspecified; I10 Essential (primary) hypertension; Z79.02 Long term (current) use of antithrombotics/antiplatelets; Z79.51 Long term (current) use of inhaled steroids; Z79.82 Long term (current) use of aspirin; Z88.1 Allergy status to other antibiotic agents; Z88.8 Allergy status to other drugs, medicaments and biological substances; Z95.5 Presence of coronary angioplasty implant and graft
CPT/HCPCS: 99285; 96374; 71045; 96361; 83735; 84484; 80048; 83880; 85025; 87086; 81001; 36415; 72040; 93005; J1100; J7030; 87186